=== PATIENT | female | born 1975 | race Caucasian/White ===

== ENCOUNTER 2018-08-27 15:31 | Emergency (ER) | payer SELFPAY ==
[~2018-08-27] VITALS: Ht 160 cm; Wt 80.0 kg
[2018-08-27] MEDS ORDERED: KETOROLAC 60MG/2ML VIAL IM ONE (19:30)
[2018-08-27 23:05] LABS: BASOPHILS % 0.4 % (0.0-2.0); EOSINOPHILS % 0.7 % (0.0-5.0); HEMOGLOBIN. 10.1 g/dL (12.0-16.0); LYMPHOCYTES % 35.7 % (20.0-50.0); MEAN CORPUSCULAR HEMOGLOBIN 19.8 pg (28.0-32.0); MEAN CORPUSCULAR VOLUME 64.7 fL (81.0-99.0); MEAN PLATELET VOLUME 7.8 fl (7.4-10.4); MONOCYTES % 8.3 % (2.0-8.0); NEUTROPHILS % 54.9 % (40.0-76.0); PLATELET 504 x1000/uL (130-400); RED BLOOD CELL COUNT 5.09 mill/uL (4.2-5.4); RED CELL DISTRIBUTION WIDTH 19.1 % (11.6-14.6)
[2018-08-27 23:10] LABS: CHLORIDE 109 mEq/L (98-107)
[2018-08-27 23:22] LABS: PLATELET ESTIMATE INCREASED
[2018-08-28 01:48] VITALS: BP 128/75
[2018-08-28] MEDS ORDERED: IOHEXOL-350 100 ML BOTTLE ONE (02:23)
== END 2018-08-28 02:04 | disposition home or self-care (01) ==
LOC: ER 15:31
DX: S80.12XA Contusion of left lower leg, initial encounter (principal); M54.9 Dorsalgia, unspecified; M54.2 Cervicalgia; R51 Headache; V49.88XA Car occupant (driver) (passenger) injured in other specified transport accidents, initial encounter; Y93.89 Activity, other specified; Y92.89 Other specified places as the place of occurrence of the external cause; Y99.8 Other external cause status
CPT/HCPCS: 36415; 71275; 72125; 73590; 74177; 80053; 81025; 85025; 96372; 99284; J1885; Q9967; Z7610